=== PATIENT | male | born 1995 | race Caucasian/White ===

== ENCOUNTER 2022-03-07 19:52 | Emergency (ER) | payer OTHER ==
[~2022-03-07] VITALS: Ht 165.1 cm; Wt 98.0 kg
[2022-03-07 20:00] VITALS: BP 147/105
[2022-03-07] MEDS ORDERED: INDOMETHACIN50 MG PO (20:13)
[2022-03-07 20:30] VITALS: BP 133/99
[2022-03-07] MEDS ORDERED: STERAPRED DS10 MG PO (20:36)
[2022-03-07 20:40] VITALS: BP 133/99
== END 2022-03-07 20:48 | disposition home or self-care (01) | DRG 554 ==
LOC: ED 19:52
DX: M10.061 Idiopathic gout, right knee (principal)